=== PATIENT | female | born 1960 ===

== ENCOUNTER 2021-02-25 15:35 | Inpatient (IN) ==
[2021-02-25] MEDS ORDERED: Albuterol HFA INHALER 8 gm MDI INH ONE (16:20)
[2021-02-25 16:34] LABS: Hematocrit 41 % (35-47); Hemoglobin 13.8 g/dL (12.0-16.0); Mean Corpuscular HGB Conc 34 g/dL (31-36); Mean Corpuscular Hemoglobin 30 pg (27-31); Mean Corpuscular Volume 89 fL (80-97); Mean Platelet Volume 7.7 fL (7.4-10.4); Platelet Count 300 10^3/uL (150-450); Red Blood Count 4.57 10^6 /uL (3.70-4.87); Red Cell Distribution Width 14 % (10-15); White Blood Count 16.7 10^3/uL (3.5-10.8)
[2021-02-25 16:41] LABS: ABS Eosinophils 0.1 10^3/ul (0-0.6); ABS Lymphocytes 1.5 10^3/ul (1.0-4.8); ABS Monocytes 1.6 10^3/ul (0-0.8); ABS Neutrophils 13.4 10^3/ul (1.5-7.7); Eosinophil % 0.7 %; Lymphocyte % 8.9 %
[2021-02-25 16:53] LABS: Troponin I 0.01 ng/mL (<0.03)
[2021-02-25 17:20] LABS: Albumin 3.3 g/dL (3.2-5.2); Albumin/Globulin Ratio 0.9 (1-3); C Reactive Protein 86.27 mg/L (<8.01); Calcium 8.6 mg/dL (8.6-10.3); Globulin 3.5 g/dL (2-4); Potassium 2.8 mmol/L (3.5-5.0); Total Protein 6.8 g/dL (6.4-8.9); eGFR CKD-EPI 37.1 (>60)
[2021-02-25] MEDS ORDERED: Potassium Chlor 20 meq TAB.ER PO ONE (17:24)
[2021-02-25] MEDS ORDERED: Iodixanol (CONTRAST) 320 MG/ML 100 ML SDV IV ONE (18:26)
[2021-02-25] MEDS ORDERED: cefTRIAXone 2 GM ADDV.VIAL 2 GM in NS 0.9% 100 ml BAG 100 ML IV SCH (21:00)
[2021-02-25] MEDS ORDERED: Remdesivir 100 mg Vial 200 MG in NS 0.9% 250 ml 210 ML IV ONE (21:30)
[2021-02-25] MEDS: Enoxaparin 40 MG/0.4 ML SYR SUBCUT SCH (23:40)
[2021-02-26 01:26] LABS: Albumin 3.1 g/dL (3.2-5.2); Calcium 8.1 mg/dL (8.6-10.3); Total Bilirubin 0.8 mg/dL (0.2-1.0)
[2021-02-26 01:32] LABS: Globulin 3.1 g/dL (2-4); Total Protein 6.2 g/dL (6.4-8.9); eGFR CKD-EPI 40.2 (>60)
[2021-02-26] MEDS: Azithromycin 500 mg/250 ml NS 500 MG/250 ML BAG IVPB SCH (02:15)
[2021-02-26] MEDS: Nystatin TOP POWDER 15 GM BTL TOPICAL SCH ×4 (03:02→20:26)
[2021-02-26] MEDS ORDERED: Potassium Chlor 20 meq TAB.ER PO ONE (04:48)
[2021-02-26 07:20] LABS: INR 1.32 (0.86-1.15)
[2021-02-26 07:30] LABS: Albumin 2.9 g/dL (3.2-5.2); Magnesium 1.9 mg/dL (1.9-2.7); Total Bilirubin 0.8 mg/dL (0.2-1.0); Total Protein 5.9 g/dL (6.4-8.9); eGFR CKD-EPI 39.5 (>60)
[2021-02-26 09:09] LABS: Urine Appearance Cloudy; Urine Bilirubin Negative (Negative); Urine Blood 1+ (Negative); Urine Color Amber; Urine Glucose Negative (Negative); Urine Ketones Negative (Negative); Urine Nitrite Negative (Negative); Urine Protein 2+(100 mg/dL) (Negative); Urine Urobilinogen Negative (Negative)
[2021-02-26 09:15] LABS: Urine Bacteria 1+ (Absent); Urine Red Blood Cell 3+(>10/hpf) (Absent); Urine Squamous Epithelial Cell Present (Absent); Urine White Blood Cell Trace(0-5/hpf) (Absent)
[2021-02-26 09:22] LABS: Urine Specific Gravity < 1.000 (1.002-1.030)
[2021-02-26 09:49] LABS: Potassium 3.4 mmol/L (3.5-5.0)
[2021-02-26] MEDS: HYDROcodone/ACETAMIN 5/325 mg TAB PO PRN (20:21)
[2021-02-26] MEDS: Enoxaparin 40 MG/0.4 ML SYR SUBCUT SCH (20:24)
[2021-02-26] MEDS: Remdesivir 100 mg Vial 100 MG in NS 0.9% 250 ml 230 ML IV SCH (22:52)
[2021-02-27] MEDS: Azithromycin 500 mg/250 ml NS 500 MG/250 ML BAG IVPB SCH (00:28)
[2021-02-27 07:55] LABS: ABS Eosinophils 0.2 10^3/ul (0-0.6); ABS Lymphocytes 2.5 10^3/ul (1.0-4.8); ABS Monocytes 1.5 10^3/ul (0-0.8); ABS Neutrophils 9.7 10^3/ul (1.5-7.7); Eosinophil % 1.2 %; Hematocrit 33 % (35-47); Hemoglobin 11.2 g/dL (12.0-16.0); Lymphocyte % 18.2 %; Mean Corpuscular HGB Conc 35 g/dL (31-36); Mean Corpuscular Hemoglobin 31 pg (27-31); Mean Corpuscular Volume 89 fL (80-97); Mean Platelet Volume 8.3 fL (7.4-10.4); Platelet Count 241 10^3/uL (150-450); Red Blood Count 3.67 10^6 /uL (3.70-4.87); Red Cell Distribution Width 15 % (10-15); White Blood Count 13.9 10^3/uL (3.5-10.8)
[2021-02-27 08:00] LABS: INR 1.35 (0.86-1.15)
[2021-02-27 08:07] LABS: Albumin 2.7 g/dL (3.2-5.2); Globulin 2.8 g/dL (2-4); Magnesium 1.9 mg/dL (1.9-2.7); Potassium 3.5 mmol/L (3.5-5.0); Total Bilirubin 0.5 mg/dL (0.2-1.0); Total Protein 5.5 g/dL (6.4-8.9)
[2021-02-27] MEDS: Nystatin TOP POWDER 15 GM BTL TOPICAL SCH ×3 (10:36→20:01)
[2021-02-27] MEDS: HYDROcodone/ACETAMIN 5/325 mg TAB PO PRN ×2 (10:42→15:18)
[2021-02-27] MEDS: Enoxaparin 40 MG/0.4 ML SYR SUBCUT SCH (19:59)
[2021-02-27] MEDS ORDERED: Saline NASAL SPRAY 0.65% BTL BOTH NARES PRN (22:57)
[2021-02-27] MEDS: Remdesivir 100 mg Vial 100 MG in NS 0.9% 250 ml 230 ML IV SCH (23:43)
[2021-02-28] MEDS: Azithromycin 500 mg/250 ml NS 500 MG/250 ML BAG IVPB SCH (01:32)
[2021-02-28 04:57] LABS: ABS Eosinophils 0.1 10^3/ul (0-0.6); ABS Monocytes 1.2 10^3/ul (0-0.8); ABS Neutrophils 9.3 10^3/ul (1.5-7.7); Eosinophil % 0.8 %; Hematocrit 33 % (35-47); Hemoglobin 11.1 g/dL (12.0-16.0); Lymphocyte % 15.7 %; Mean Corpuscular HGB Conc 34 g/dL (31-36); Mean Corpuscular Hemoglobin 30 pg (27-31); Mean Corpuscular Volume 88 fL (80-97); Nucleated Red Blood Cells % 0.1; Platelet Count 264 10^3/uL (150-450); Red Blood Count 3.75 10^6 /uL (3.70-4.87); Red Cell Distribution Width 14 % (10-15); White Blood Count 12.6 10^3/uL (3.5-10.8)
[2021-02-28 05:11] LABS: Albumin 2.8 g/dL (3.2-5.2); Calcium 7.8 mg/dL (8.6-10.3); Globulin 2.8 g/dL (2-4); Magnesium 1.8 mg/dL (1.9-2.7); Potassium 3.2 mmol/L (3.5-5.0); Total Bilirubin 0.4 mg/dL (0.2-1.0); Total Protein 5.6 g/dL (6.4-8.9)
[2021-02-28] MEDS ORDERED: Magnesium Sulfate 2 gm BAG 2 GM/50 ML BAG IVPB ONE (06:41)
[2021-02-28] MEDS: Nystatin TOP POWDER 15 GM BTL TOPICAL SCH ×3 (08:54→21:46)
[2021-02-28] MEDS: Enoxaparin 40 MG/0.4 ML SYR SUBCUT SCH (21:43)
[2021-02-28] MEDS: Remdesivir 100 mg Vial 100 MG in NS 0.9% 250 ml 230 ML IV SCH (23:20)
[2021-03-01 07:20] LABS: Albumin 2.7 g/dL (3.2-5.2); Calcium 7.9 mg/dL (8.6-10.3); Globulin 2.7 g/dL (2-4); Potassium 3.5 mmol/L (3.5-5.0); Total Bilirubin 0.5 mg/dL (0.2-1.0); Total Protein 5.4 g/dL (6.4-8.9); eGFR CKD-EPI 36.6 (>60)
[2021-03-01] MEDS: Nystatin TOP POWDER 15 GM BTL TOPICAL SCH ×3 (09:27→21:42)
[2021-03-01] MEDS ORDERED: cefTRIAXone 2 GM ADDV.VIAL 2 GM in NS 0.9% 100 ml BAG 100 ML IV SCH (16:00)
[2021-03-01] MEDS: Enoxaparin 40 MG/0.4 ML SYR SUBCUT SCH (21:39)
[2021-03-01] MEDS: Remdesivir 100 mg Vial 100 MG in NS 0.9% 250 ml 230 ML IV SCH (22:30)
[2021-03-02 08:55] LABS: Albumin 2.9 g/dL (3.2-5.2); Calcium 8.3 mg/dL (8.6-10.3); Globulin 2.9 g/dL (2-4); Potassium 4.1 mmol/L (3.5-5.0); Total Bilirubin 0.6 mg/dL (0.2-1.0); Total Protein 5.8 g/dL (6.4-8.9); eGFR CKD-EPI 38.3 (>60)
[2021-03-02] MEDS: Nystatin TOP POWDER 15 GM BTL TOPICAL SCH (10:16)
[2021-03-02 13:33] VITALS: BP 136/67
== END 2021-03-02 14:24 | disposition home health service (06) | DRG 177 ==
LOC: ED 15:35 → SUATTDRO 20:37 → MED 20:37
PROVIDERS: ADMIT Internal Medicine; ATTEND Student in an Organized Health Care Education/Training Program